=== PATIENT | female | born 1980 | race Caucasian/White ===

== ENCOUNTER 2017-06-05 10:44 | Inpatient (IN) | payer OTHER ==
[2017-06-05] VITALS (85 sets, daily range): BP systolic 98–135; BP diastolic 37–91; PULSE 76–138; RESP 14–18; TEMP 97.4–99; O2SAT 97–100
[~2017-06-05] VITALS: Ht 172.7 cm; Wt 98.0 kg
[~2017-06-05 10:44] MED LIST: ALBU8I INH; AMIT100 PO; TOPA100T8 PO
[2017-06-05] MEDS ORDERED: LACTATED RINGER'S 1000 ML INJ 1,000 ML IV PRN (12:02)
--- NOTE | 2017-06-05 12:07 | PD ---
HPI Chief Complaint 39 weeks and 3 days leaking fluid Travel History International Travel<30 Days: No Contact w/Intl Traveler<30Days: No Known Affected Area: No History of Present Illness HPI Patient is a 37 yo at 39 weeks and 3 days. Patient has EDC 06-09-2017. Care with Dr Moreno. No complications this . Pt had h/o recurrent losses, all first trimester. Pt states she noted leaking fluid vaginally at 08:30. Has continued to leak. Active movements. No vaginal bleeding. GBS negative in office. Weeks Gestation: 39 Para: 0 : 9 Miscarriage: 8 History Obstetric History Obstetric History recurrent first trimester losses Past Surgical History Narrative Surgical Right salpingectomy for hydrosalphinx 06/2016 Family History Family History: Negative Social History Alcohol Use: No Tobacco Use: No Substance Abuse: No Allergies-Medications (Allergen,Severity, Reaction): Coded Allergies: doxycycline (Unverified Allergy, Severe, Swelling, 01/04/17) tongue swells, painful skin. sumatriptan (Unverified Allergy, Severe, vomiting and lock jaw, 01/04/17) prochlorperazine (Unverified Allergy, Intermediate, Rash, 01/04/17) Home Meds Active Scripts Albuterol Sulfate 8 GM Inhaler (Ventolin Hfa) 8 Gm Aero, 2 PUFF INH Q6, #1 BOX 4 Refills * SHAKE WELL BEFORE USE * Prov:Clifton Arambula Jr., MD 07/24/14 Reported Medications Topiramate (Topamax) 100 Mg Tab, 100 MG PO TID, TAB 06/27/13 Amitriptyline Hcl (Elavil 100 Mg Tab) 100 Mg Tab, 100 MG PO HS, TAB 06/27/13 Review of Systems Except as stated in HPI: all other systems reviewed are Neg Physical Exam Narrative GENERAL: Well-nourished, well-developed patient. SKIN: Warm and dry. HEAD: Normocephalic and atraumatic. EYES: No scleral icterus. No injection or drainage. ENT: No nasal drainage noted. Mucous membranes pink. Airway patent. NECK: Supple, trachea midline. No JVD. CARDIOVASCULAR: Regular rate and rhythm without murmurs, gallops, or rubs. RESPIRATORY: Breath sounds equal bilaterally. No accessory muscle use. BREASTS: Bilateral exam showed no masses , no retractions, no nipple discharge. ABDOMEN/GI: Abdomen soft, non-tender, bowel sounds present, no rebound, no guarding Gravid to [39] weeks size Fundal Height: [39] GENITOURINARY: External Genitalia: intact and normal in appearance BUS glands: [wnl] Cervix: [soft] Dilatation: [1-2] Effacement: [80%] Station: [-2] Presentation: [vertex] Membranes: [ruptured] Amniosure positive Uterine Contractions: [irregular] FHT's: Category: [1] Baseline: [120s] Reactive: [-] Variability: [moderate] Decels: [none] EXTREMITIES: No cyanosis or edema. BACK: Nontender without obvious deformity. No CVA tenderness. NEUROLOGICAL: Awake and alert. Motor and sensory grossly within normal limits. Five out of 5 muscle strength in all muscle groups. Normal speech. Data Data Vital Signs Reviewed: Yes Orders Orders Ob (2e) Additional Admit Info (06/05/17 11:33) Group B Strep: Negative MDM Medical Record Reviewed: Yes Plan Pt is a 37 yo at 39 weeks and 3 days who presents with spontaneous rupture of membranes Reassuring and maternal status. GBS negative. D/w Dr Darby. Will admit to L&D Diagnosis Diagnosis: Primary Impression: with 39 completed weeks gestation Additional Impressions: Rupture of membranes with clear amniotic fluid Admitted to labor and delivery Abhi Licona MD Jun 05, 2017 12:07
[2017-06-05 12:15] LABS: AUTOMATED NEUTROPHIL # 9.3 TH/MM3 (1.8-7.7); BASOPHIL # 0.1 TH/MM3 (0-0.2); BASOPHIL % 0.8 % (0.0-2.0); EOSINOPHIL # 0.2 TH/MM3 (0-0.4); EOSINOPHIL % 1.3 % (0.0-4.0); HEMATOCRIT 35.6 % (35.0-46.0); HEMOGLOBIN 11.5 GM/DL (11.6-15.3); LYMPH % 14.9 % (9.0-44.0); LYMPHOCYTE # 1.9 TH/MM3 (1.0-4.8); MEAN CELL VOLUME 85.2 FL (80.0-100.0); MEAN CORPUSCULAR HEMOGLOBIN 27.6 PG (27.0-34.0); MEAN CORPUSCULAR HGB CONC 32.4 % (32.0-36.0); MEAN PLATELET VOLUME 8.6 FL (7.0-11.0); MONO % 8.9 % (0.0-8.0); MONOCYTE # 1.1 TH/MM3 (0-0.9); NEUT % 74.1 % (16.0-70.0); PLATELET COUNT 416 TH/MM3 (150-450); RED BLOOD COUNT 4.18 MIL/MM3 (4.00-5.30); RED CELL DISTRIBUTION WIDTH 15.1 % (11.6-17.2); WHITE BLOOD COUNT 12.6 TH/MM3 (4.0-11.0)
[2017-06-05] MEDS ORDERED: LIDOCAINE HCL 1% 50 ML VIAL INFIL PRN (12:15)
[2017-06-05] MEDS ORDERED: OXYTOCIN 30 UNITS-500ML PREMIX 500 ML IV ONE (12:15)
[2017-06-05] MEDS: LACTATED RINGER'S 1000 ML INJ 1,000 ML IV SCH ×2 (12:15→20:12)
[2017-06-05] MEDS ORDERED: LIDOCAINE HCL 1% 50 ML VIAL I-DERMAL PRN (12:15)
[2017-06-05] MEDS ORDERED: CITRIC ACID-SODIUM CITRATE LIQ 30 ML UDC PO SCH (12:15)
[2017-06-05] MEDS ORDERED: SODIUM CHLORID 0.9% 500 ML INJ 500 ML IV PRN (12:15)
[2017-06-05] MEDS ORDERED: MINERAL OIL 10 ML VIAL TOPICAL PRN (12:15)
--- NOTE | 2017-06-05 12:15 | HHI.HP ---
HPI Chief Complaint 39 weeks and 3 days Spontaneous rupture of membranes 08:30 Travel History International Travel<30 Days: No Contact w/Intl Traveler<30Days: No Known Affected Area: No History of Present Illness HPI Patient is a 37 yo at 39 weeks and 3 days. Patient has EDC 06-09-2017. Care with Dr Moreno. No complications this . Pt had h/o recurrent losses, all first trimester. Pt states she noted leaking fluid vaginally at 08:30. Has continued to leak. Active movements. No vaginal bleeding. GBS negative in office. Grossly rupture on exam Weeks Gestation: 39 Para: 0 : 9 Miscarriage: 8 History Past Medical History Narrative Medical Migraine headaches Obstetric History Obstetric History h/o recurrent first trimester losses Past Surgical History Narrative Surgical RIGHT salpingectomy 06/2016 for hydrosalpinx Family History Family History: Negative Social History Alcohol Use: No Tobacco Use: No Substance Abuse: No Allergies-Medications (Allergen,Severity, Reaction): Coded Allergies: doxycycline (Unverified Allergy, Severe, Swelling, 01/04/17) tongue swells, painful skin. sumatriptan (Unverified Allergy, Severe, vomiting and lock jaw, 01/04/17) prochlorperazine (Unverified Allergy, Intermediate, Rash, 01/04/17) Home Meds Active Scripts Albuterol Sulfate 8 GM Inhaler (Ventolin Hfa) 8 Gm Aero, 2 PUFF INH Q6, #1 BOX 4 Refills * SHAKE WELL BEFORE USE * Prov:Clifton Arambula Jr., MD 07/24/14 Reported Medications Topiramate (Topamax) 100 Mg Tab, 100 MG PO TID, TAB 06/27/13 Amitriptyline Hcl (Elavil 100 Mg Tab) 100 Mg Tab, 100 MG PO HS, TAB 06/27/13 Review of Systems Except as stated in HPI: all other systems reviewed are Neg Physical Exam Narrative GENERAL: Well-nourished, well-developed patient. SKIN: Warm and dry. HEAD: Normocephalic and atraumatic. EYES: No scleral icterus. No injection or drainage. ENT: No nasal drainage noted. Mucous membranes pink. Airway patent. NECK: Supple, trachea midline. No JVD. CARDIOVASCULAR: Regular rate and rhythm without murmurs, gallops, or rubs. RESPIRATORY: Breath sounds equal bilaterally. No accessory muscle use. BREASTS: Bilateral exam showed no masses , no retractions, no nipple discharge. ABDOMEN/GI: Abdomen soft, non-tender, bowel sounds present, no rebound, no guarding Gravid to [39] weeks size Fundal Height: [39] GENITOURINARY: External Genitalia: intact and normal in appearance BUS glands: [wnl] Cervix: [soft] Dilatation: [1-2] Effacement: [80%] Station: [-2] Presentation: [vertex] Membranes: [intact or ruptured] Uterine Contractions: [8-10 minutes] FHT's: Category: [1] Baseline: [120s] Reactive: [-] Variability: [moderate] Decels: [none] EXTREMITIES: No cyanosis or edema. BACK: Nontender without obvious deformity. No CVA tenderness. NEUROLOGICAL: Awake and alert. Motor and sensory grossly within normal limits. Five out of 5 muscle strength in all muscle groups. Normal speech. Caprini VTE Risk Assessment Caprini VTE Risk Assessment: No/Low Risk (score <= 1) Caprini Risk Assessment Model Point Value = 1 Point Value = 2 Point Value = 3 Point Value = 5 Age 41-60 Minor surgery BMI > 25 kg/m2 Swollen legs Varicose veins or History of unexplained or recurrent spontaneous Oral contraceptives or hormone replacement Sepsis (< 1 month) Serious lung disease, including pneumonia (< 1 month) Abnormal pulmonary function Acute myocardial infarction Congestive heart failure (< 1 month) History of inflammatory bowel disease Medical patient at bed rest Age 61-74 Arthroscopic surgery Major open surgery (> 45 min) Laparoscopic surgery (> 45 min) Malignancy Confined to bed (> 72 hours) Immobilizing plaster cast Central venous access Age >= 75 History of VTE Family history of VTE Factor V Leiden Prothrombin [id number] Lupus anticoagulant Anticardiolipin antibodies Elevated serum homocysteine Heparin-induced thrombocytopenia Other congenital or acquired thrombophilia Stroke (< 1 month) Elective arthroplasty Hip, pelvis, or leg fracture Acute spinal cord injury (< 1 month) Prophylaxis Regimen Total Risk Factor Score Risk Level Prophylaxis Regimen 0-1 Low Early ambulation 2 Moderate Order ONE of the following: *Sequential Compression Device (SCD) *Heparin 5000 units SQ BID 3-4 Higher Order ONE of the following medications: *Heparin 5000 units SQ TID *Enoxaparin/Lovenox 40 mg SQ daily (WT < 150 kg, CrCl > 30 mL/min) *Enoxaparin/Lovenox 30 mg SQ daily (WT < 150 kg, CrCl > 10-29 mL/min) *Enoxaparin/Lovenox 30 mg SQ BID (WT < 150 kg, CrCl > 30 mL/min) AND/OR *Sequential Compression Device (SCD) 5 or more Highest Order ONE of the following medications: *Heparin 5000 units SQ TID (Preferred with Epidurals) *Enoxaparin/Lovenox 40 mg SQ daily (WT < 150 kg, CrCl > 30 mL/min) *Enoxaparin/Lovenox 30 mg SQ daily (WT < 150 kg, CrCl > 10-29 mL/min) *Enoxaparin/Lovenox 30 mg SQ BID (WT < 150 kg, CrCl > 30 mL/min) AND *Sequential Compression Device (SCD) Data Data Vital Signs Reviewed: Yes Orders Orders Ob (2e) Additional Admit Info (06/05/17 11:33) Admit To Inpatient (06/05/17 ) Code Status (06/05/17 12:02) Vital Signs (Adult) .Per protocol (06/05/17 12:02) Activity Oob Ad Maggie (06/05/17 12:02) Heart (06/05/17 12:02) Amnioinfusion (06/05/17 12:02) Urinary Catheter Management .ONCE (06/05/17 12:02) Diet Liquid (06/05/17 Lunch) Lactated Ringer's 1000 Ml Inj (Lr 1000 M (06/05/17 12:02) Lactated Ringer's 1000 Ml Inj (Lr 1000 M (06/05/17 12:02) Sodium Chlorid 0.9% 500 Ml Inj (Ns 500 M (06/05/17 12:15) Sodium Chlor 0.9% 1000 Ml Inj (Ns 1000 M (06/05/17 12:22) Lidocaine 1% Inj (50 Ml) (Xylocaine 1% I (06/05/17 12:15) Citric Acid-Sodium Citrate Liq (Bicitra (06/05/17 12:15) Fentanyl Inj (Fentanyl Inj) (06/05/17 12:15) Fentanyl Inj (Fentanyl Inj) (06/05/17 12:15) Complete Blood Count With Diff (06/05/17 12:02) Hold Clot (06/05/17 12:02) Abo/Rh Blood Type (06/05/17 12:02) Urinalysis - C+S If Indicated (06/05/17 12:02) Drug Screen, Random Urine (06/05/17 12:02) Resp Oxygen Non Rebreathe Mask (06/05/17 ) ^ Epidural / Intrathecal Infus (06/05/17 12:02) Oxytocin 30 Units-500ml Premix (Pitocin (06/05/17 12:15) Lidocaine 1% Inj (50 Ml) (Xylocaine 1% I (06/05/17 12:15) Light Mineral Oil (Muri-Lube Oil) (06/05/17 12:15) Inpatient Certification (06/05/17 ) Specimen To Be Collected PRN (06/05/17 12:02) Specimen To Be Collected PRN (06/05/17 12:02) Group B Strep: Negative Assessment/Plan Assessment and Plan 37 yo at 39 weeks and 3 days. SROM at term , clear /maternal status reassuring. GBS negative Admit to L&D Abhi Licona MD Jun 05, 2017 12:15
[2017-06-05] MEDS ORDERED: SODIUM CHLOR 0.9% 1000 ML INJ 1,000 ML IV PRN (12:22)
[2017-06-05 12:54] LABS: AMORPHOUS SEDIMENT, URINE MOD; BACTERIA, URINE OCC /hpf; BILIRUBIN, URINE NEG (NEG); BLOOD, URINE MOD (NEG); GLUCOSE,URINE NEG (NEG); HYALINE CAST, URINE 3 /lpf (RARE); KETONE, URINE NEG (NEG); NITRITE,URINE NEG (NEG); RENAL EPITHELIAL CELLS 1 /hpf; SQUAMOUS EPITHELIAL CELL URINE 19 /hpf (0-5); URINE COLOR LIGHT-YELLOW (YELLW/STRAW); URINE LEUKOCYTE ESTERASE NEG (NEG)
[2017-06-05 12:58] LABS: BANDS 9 % (0-6); CORRECTED NUCLEATED RBC 2 /100 WBC (0-0); LYMPHOCYTES 14 % (9-44); METAMYELOCYTES 3 % (0-1); MONOCYTES 11 % (0-8); MYELOCYTES 1 % (0-0); NEUTROPHIL # MANUAL DIFF 8.8 TH/MM3 (1.8-7.7); NUCLEATED RED BLOOD CELL 2 (0-0); POLYS (SEG NEUTROPHILS) 57 % (16-70)
[2017-06-05] MEDS ORDERED: ONDANSETRON HCL 4 MG/2 ML VIAL ONE ×2 (14:50→17:09)
[2017-06-05] MEDS ORDERED: OXYTOCIN 30 UNITS-500ML PREMIX 500 ML IV SCH (16:30)
[2017-06-05] MEDS ORDERED: fentaNYL 2MCG-BUPIV 0.125% INJ 100 ML ONE (17:12)
[2017-06-05] MEDS ORDERED: ePHEDrine/NS 25 MG/5 ML SYRINGE IV PUSH PRN (18:30)
[2017-06-05] MEDS ORDERED: NO SYSTEM NARCOTICS PRN (18:30)
[2017-06-05] MEDS ORDERED: DO NOT ADMINISTER ANTICOAGULANTS PRN (18:30)
[2017-06-05] MEDS: fentaNYL 2MCG-BUPIV 0.125% 100 ML EPIDURAL SCH ×2 (20:13→22:46)
--- NOTE | 2017-06-05 22:15 | PD.LABORPN ---
Subjective Subjective doing well Objective Vital Signs Vital Signs Date Time Temp Pulse Resp B/P (MAP) Pulse Ox O2 Delivery O2 Flow Rate FiO2 06/05/17 21:35 110 06/05/17 21:31 94 107/77 (87) 06/05/17 21:30 102 06/05/17 21:25 95 06/05/17 21:20 103 06/05/17 21:15 97 122/76 (91) 06/05/17 21:15 88 06/05/17 21:10 95 100 06/05/17 21:05 93 100 06/05/17 21:00 100 06/05/17 21:00 88 06/05/17 21:00 89 113/76 (88) 06/05/17 20:55 92 100 06/05/17 20:50 92 100 06/05/17 20:45 98 104/82 (89) 100 06/05/17 20:45 138 06/05/17 20:40 85 100 06/05/17 20:35 94 98 06/05/17 20:30 89 103/57 (72) 100 06/05/17 20:30 84 06/05/17 20:25 82 100 06/05/17 20:20 88 100 06/05/17 20:15 86 98/54 (69) 100 06/05/17 20:15 76 06/05/17 20:10 100 06/05/17 20:10 82 06/05/17 20:05 100 06/05/17 20:05 87 06/05/17 20:00 89 06/05/17 20:00 86 104/71 (82) 06/05/17 20:00 100 06/05/17 19:55 85 06/05/17 19:55 100 06/05/17 19:50 96 06/05/17 19:50 100 06/05/17 19:45 100 127/78 (94) 06/05/17 19:45 79 06/05/17 19:45 99 06/05/17 19:40 97 100 06/05/17 19:35 92 100 06/05/17 19:30 89 118/81 (93) 100 06/05/17 19:30 85 06/05/17 19:25 88 06/05/17 19:25 100 06/05/17 19:20 100 06/05/17 19:20 86 06/05/17 19:15 85 124/81 (95) 06/05/17 19:15 88 06/05/17 19:15 100 06/05/17 19:10 89 06/05/17 19:10 100 06/05/17 19:09 97.9 14 06/05/17 19:05 90 06/05/17 19:05 100 06/05/17 19:00 76 06/05/17 19:00 100 06/05/17 19:00 90 125/76 (92) 06/05/17 18:55 100 06/05/17 18:55 87 06/05/17 18:45 81 119/82 (94) 06/05/17 18:45 99 06/05/17 18:45 102 06/05/17 18:44 18 06/05/17 18:35 84 06/05/17 18:35 100 06/05/17 18:30 89 116/74 (88) 06/05/17 18:16 85 116/71 (86) 06/05/17 17:55 91 06/05/17 17:55 96 131/73 (92) 06/05/17 17:50 85 135/78 (97) 06/05/17 17:50 86 06/05/17 17:48 97.9 18 06/05/17 17:45 18 06/05/17 17:45 88 121/89 (100) 06/05/17 17:45 88 06/05/17 17:40 101 06/05/17 17:40 92 127/81 (96) 06/05/17 17:35 101 06/05/17 17:35 100 126/91 (103) 06/05/17 17:31 101 129/83 (98) 06/05/17 17:30 97 06/05/17 17:25 87 127/83 (98) 06/05/17 17:25 18 06/05/17 17:25 88 06/05/17 16:45 97.6 06/05/17 16:45 18 06/05/17 16:33 91 120/75 (90) 06/05/17 16:21 14 06/05/17 15:06 81 122/82 (95) 06/05/17 15:00 98.0 18 Objective Pelvic Exam: Cervix: [-] Dilatation: 6-7 Effacement: [-] Station: [-] Presentation: vtx Membranes: SROM Uterine Contractions: q2-3 FHT's: Category: 1 Baseline: [-] Reactive: [-] Variability: [-] Decels: [-] Weeks Gestation: 39 Assessment/Plan Problem List: (1) with 39 completed weeks gestation ICD Codes: Z3A.39 - 39 weeks gestation of Status: Acute (2) Rupture of membranes with clear amniotic fluid ICD Codes: O42.019 - premature rupture of membranes, onset of labor within 24 hours of rupture, unspecified trimester Status: Acute Gregg Massey MD Jun 05, 2017 22:15
[2017-06-05] MEDS ORDERED: BUPIVACAINE HCL PF 0.25% 10 ML VIAL ONE (23:59)
[2017-06-06] VITALS (53 sets, daily range): BP systolic 91–129; BP diastolic 52–72; PULSE 65–128; RESP 14–20; TEMP 97.6–100; O2SAT 97–100
[2017-06-06] MEDS ORDERED: LIDOCAINE 2%/EPINEPHrine PF 1:200,000 20ML SDV ONE
[2017-06-06] MEDS ORDERED: ACETAMINOPHEN 325 MG TAB PO PRN (00:15)
[2017-06-06] MEDS: LACTATED RINGER'S 1000 ML INJ 1,000 ML IV SCH ×2 (04:47→05:50)
[2017-06-06] MEDS: fentaNYL 2MCG-BUPIV 0.125% 100 ML EPIDURAL SCH (04:47)
--- NOTE | 2017-06-06 05:10 | PD.LABORPN ---
Subjective Subjective Pushing for 90 minutes, doing well with contractions Objective Vital Signs Vital Signs Date Time Temp Pulse Resp B/P (MAP) Pulse Ox O2 Delivery O2 Flow Rate FiO2 06/06/17 04:42 120 06/06/17 03:30 99.0 06/06/17 03:09 108 120/70 (87) 06/06/17 02:25 114 98 06/06/17 02:20 109 99 06/06/17 02:15 109 99 06/06/17 02:10 99 06/06/17 02:10 97 06/06/17 02:07 104 117/63 (81) 06/06/17 02:05 100 06/06/17 02:05 113 06/06/17 02:00 99.6 14 06/06/17 02:00 100 06/06/17 02:00 104 06/06/17 01:55 109 100 06/06/17 01:50 99 100 06/06/17 01:45 99 100 06/06/17 01:40 107 100 06/06/17 01:35 116 100 06/06/17 01:30 99 100 06/06/17 01:25 93 100 06/06/17 01:20 109 100 06/06/17 01:15 101 100 06/06/17 01:10 102 98 06/06/17 01:05 91 99 06/06/17 01:00 90 100 06/06/17 00:55 93 100 06/06/17 00:50 98 100 06/06/17 00:47 105 118/71 (87) 06/06/17 00:45 99 100 06/06/17 00:40 108 100 06/06/17 00:35 100 06/06/17 00:30 110 100 06/06/17 00:25 100 06/06/17 00:20 100 06/06/17 00:15 114 100 06/06/17 00:10 100 06/06/17 00:10 128 06/06/17 00:07 113 129/69 (89) 06/06/17 00:05 105 100 06/06/17 00:00 113 100 06/06/17 00:00 100.0 16 06/05/17 23:55 110 100 06/05/17 23:49 112 111/75 (87) 06/05/17 23:45 106 100 06/05/17 23:40 101 100 06/05/17 23:35 102 100 06/05/17 23:30 102 100 06/05/17 23:25 100 100 06/05/17 23:20 96 100 06/05/17 23:15 102 100 06/05/17 23:10 91 100 06/05/17 23:05 106 100 06/05/17 23:00 109 100 06/05/17 22:55 110 100 06/05/17 22:50 103 100 06/05/17 22:45 95 97 06/05/17 22:39 93 107/37 (60) 06/05/17 22:35 90 100 06/05/17 22:30 96 100 06/05/17 22:25 98 100 06/05/17 22:20 97 100 06/05/17 22:15 100 100 06/05/17 22:10 103 99 06/05/17 22:05 109 98 06/05/17 22:00 99.0 06/05/17 22:00 104 100 06/05/17 21:55 93 100 06/05/17 21:50 106 100 06/05/17 21:45 101 99 06/05/17 21:40 104 100 06/05/17 21:35 100 06/05/17 21:35 110 06/05/17 21:31 94 107/77 (87) 06/05/17 21:30 102 06/05/17 21:30 100 06/05/17 21:25 95 06/05/17 21:25 98 06/05/17 21:20 103 06/05/17 21:20 100 06/05/17 21:15 97 122/76 (91) 06/05/17 21:15 100 06/05/17 21:15 88 06/05/17 21:10 95 100 06/05/17 21:05 93 100 Objective Pelvic Exam: Cervix: [-] Dilatation: 10 Effacement: [-] Station: [-] Presentation: OP vertex Membranes: SROM Uterine Contractions: [-] FHT's: Category: 1 Baseline: [-] Reactive: [-] Variability: [-] Decels: [-] Weeks Gestation: 39 Assessment/Plan Problem List: (1) with 39 completed weeks gestation ICD Codes: Z3A.39 - 39 weeks gestation of Status: Acute (2) Rupture of membranes with clear amniotic fluid ICD Codes: O42.019 - premature rupture of membranes, onset of labor within 24 hours of rupture, unspecified trimester Status: Acute Plan: pushing for 1:50 Gregg Massey MD Jun 06, 2017 05:10
[2017-06-06] MEDS ORDERED: LACTATED RINGER'S 1000 ML INJ 1,000 ML IV ONE ×2 (05:20→12:00)
--- NOTE | 2017-06-06 05:22 | PD.LABORPN ---
Subjective Subjective for CS Objective Vital Signs Vital Signs Date Time Temp Pulse Resp B/P (MAP) Pulse Ox O2 Delivery O2 Flow Rate FiO2 06/06/17 04:42 120 06/06/17 03:30 99.0 06/06/17 03:09 108 120/70 (87) 06/06/17 02:25 114 98 06/06/17 02:20 109 99 06/06/17 02:15 109 99 06/06/17 02:10 99 06/06/17 02:10 97 06/06/17 02:07 104 117/63 (81) 06/06/17 02:05 100 06/06/17 02:05 113 06/06/17 02:00 99.6 14 06/06/17 02:00 100 06/06/17 02:00 104 06/06/17 01:55 109 100 06/06/17 01:50 99 100 06/06/17 01:45 99 100 06/06/17 01:40 107 100 06/06/17 01:35 116 100 06/06/17 01:30 99 100 06/06/17 01:25 93 100 06/06/17 01:20 109 100 06/06/17 01:15 101 100 06/06/17 01:10 102 98 06/06/17 01:05 91 99 06/06/17 01:00 90 100 06/06/17 00:55 93 100 06/06/17 00:50 98 100 06/06/17 00:47 105 118/71 (87) 06/06/17 00:45 99 100 06/06/17 00:40 108 100 06/06/17 00:35 100 06/06/17 00:30 110 100 06/06/17 00:25 100 06/06/17 00:20 100 06/06/17 00:15 114 100 06/06/17 00:10 100 06/06/17 00:10 128 06/06/17 00:07 113 129/69 (89) 06/06/17 00:05 105 100 06/06/17 00:00 113 100 06/06/17 00:00 100.0 16 06/05/17 23:55 110 100 06/05/17 23:49 112 111/75 (87) 06/05/17 23:45 106 100 06/05/17 23:40 101 100 06/05/17 23:35 102 100 06/05/17 23:30 102 100 06/05/17 23:25 100 100 06/05/17 23:20 96 100 06/05/17 23:15 102 100 06/05/17 23:10 91 100 06/05/17 23:05 106 100 06/05/17 23:00 109 100 06/05/17 22:55 110 100 06/05/17 22:50 103 100 06/05/17 22:45 95 97 06/05/17 22:39 93 107/37 (60) 06/05/17 22:35 90 100 06/05/17 22:30 96 100 06/05/17 22:25 98 100 06/05/17 22:20 97 100 06/05/17 22:15 100 100 06/05/17 22:10 103 99 06/05/17 22:05 109 98 06/05/17 22:00 99.0 06/05/17 22:00 104 100 06/05/17 21:55 93 100 06/05/17 21:50 106 100 06/05/17 21:45 101 99 06/05/17 21:40 104 100 06/05/17 21:35 100 06/05/17 21:35 110 06/05/17 21:31 94 107/77 (87) 06/05/17 21:30 102 06/05/17 21:30 100 06/05/17 21:25 95 06/05/17 21:25 98 Objective Pelvic Exam: Cervix: 10 Dilatation: [-] Effacement: [-] Station: [-] Presentation: [-] Membranes: [intact or ruptured] Uterine Contractions: [-] FHT's: Category: [-] Baseline: [-] Reactive: [-] Variability: [-] Decels: [-] Weeks Gestation: 39 Assessment/Plan Problem List: (1) with 39 completed weeks gestation ICD Codes: Z3A.39 - 39 weeks gestation of Status: Acute (2) Rupture of membranes with clear amniotic fluid ICD Codes: O42.019 - premature rupture of membranes, onset of labor within 24 hours of rupture, unspecified trimester Status: Acute Plan: pushing for 1:50 (3) Arrest of descent, delivered, current hospitalization ICD Codes: O62.1 - Secondary uterine inertia Gregg Massey MD Jun 06, 2017 05:22
[2017-06-06] MEDS ORDERED: MORPHINE SULFATE PF 5 MG/10 ML VIAL ONE (05:31)
[2017-06-06] MEDS ORDERED: ACETAMINOPHEN 1000 MG/100 ML 100 ML IV ONE (05:31)
[2017-06-06] MEDS ORDERED: MIDAZOLAM HCL 2 MG/2 ML VIAL ONE (05:37)
--- NOTE | 2017-06-06 06:24 | PD.OB.DELI ---
Procedure Note Section Procedure Pre Op Diagnosis: (1) Arrest of descent, delivered, current hospitalization Post Op Diagnosis: (1) Arrest of descent, delivered, current hospitalization Performed by Gregg Massey Procedure: Primary Low Transverse Sec Indication for delivery: malposition (direct op), Other (arrest of descent after 2 hours pushing) Informed consent obtained: For anesthesia, For procedure Confirmed correct: Procedure, Time-out taken Anesthesia: Epidural (converted to general) Medication prior to procedure: As documented in eMAR, Antibiotics, IV Monitoring during procedure: Blood pressure monitoring, patient monitor Urinary catheter: To dependent drainage, Other (bloody entering surgery) Sterile preparation: Duraprep Position: Supine with wedge to left side Operative Features Skin Incision: Pfannenstiel Uterine Incision: Low transverse w/knife / blunt ext Membranes Ruptured: Previously Presentation: Occiput posterior Delivery date: Jun 06, 2017 Delivery time: 05:53 Delivery of : Uneventful : Male, Single One Minute : 6 Five Minute : 7 Ten Minute : 9 Weight: 4460 gm Status of : Viable Placenta delivered: Intact Medications: Antibiotics Estimated blood loss: 500 Procedure tolerated: Well Maternal Condition: Stable Condition: Stable Gregg Massey MD Jun 06, 2017 06:24
[2017-06-06] MEDS ORDERED: KETOROLAC TROMETHAMINE 60 MG/2 ML (IM) VIAL IM PRN (06:30)
[2017-06-06] MEDS ORDERED: oxyCODONE/ACETAMINOPHEN 5 MG/325 MG TAB PO PRN (06:30)
[2017-06-06] MEDS ORDERED: SODIUM CHLORIDE 0.9% FLUSH 10 ML FLUSH IV FLUSH PRN (06:30)
[2017-06-06] MEDS ORDERED: ceFAZolin 2 GM PREMIX 50 ML IV SCH (06:30)
[2017-06-06] MEDS ORDERED: SIMETHICONE 80 MG CHEWABLE TAB PO PRN (06:30)
[2017-06-06] MEDS ORDERED: OXYTOCIN 30 UNITS-500ML PREMIX 500 ML IV ONE (06:30)
--- NOTE | 2017-06-06 06:43 | MP ---
cc: EVENS MASSEY DATE OF PROCEDURE 06/06/2017 PROCEDURE Primary low transverse section for arrest of dilatation after 2 hours of pushing. PREOPERATIVE DIAGNOSIS Arrest of dilatation. POSTOPERATIVE DIAGNOSIS Arrest of dilatation. SURGEON Dr. Evens Massey ESTIMATED BLOOD LOSS 500 cc. COMPLICATIONS None. FINDINGS Live male infant, Apgars of 6, 7 and 9. A 4460-gram male born by section. COMPLICATIONS None. SURGEON Dr. Evens Massey ANESTHESIA Dr. Moreno, epidural which was converted to general anesthesia. PROCEDURE IN DETAIL After informed consent the patient was taken to the operating room where she was placed under epidural anesthesia. She was placed in supine position in left lateral tilt. Abdomen, perineum and vagina were prepped and draped in normal sterile fashion after adequate anesthesia was assured. A time-out was taken attempting to test the patient. The patient had left-sided pain. The right side was completely numb. The left side was inadequate for section. Decision was made general anesthesia. Abebe Batista and Dr. Moreno put the patient under general anesthesia. Once the patient was placed under general anesthesia and the patient had already been prepped and draped and the Fournier was draining well, a Pfannenstiel skin incision was carried sharply through the skin to the fascia. The fascia was nicked in the midline. The incision was extended laterally using Crum scissors. The rectus muscle was in the midline. The peritoneum was entered bluntly with a finger, the incision then extended laterally using Crum scissors. The peritoneum was entered. The uterus was noted to be midline. A bladder flap was created by dissecting the bladder off the lower uterine segment. A low-transverse uterine incision was then made, carried sharply into the uterine cavity. Clear fluid was noted. The incision was extended laterally using blunt traction. A hand was placed in the uterus. The 's head was guided through the incision using fundal pressure. The 's head was delivered easily. The infant was delivered, was attempting to cry and cried three or four times on the mother's thighs with some tone and movement. At this point the cord was clamped and cut and the infant was handed to pediatrics in attendance. Cord blood was collected. We had a 45-second delay in cord clamping when was clamped, cut and tied. Cord blood was collected. Placenta was delivered manually. The uterus was exteriorized, wiped free from all remaining products of conception. The uterine incision was then closed with a running locked stitch of chromic suture. Good hemostasis was achieved. The uterus was placed back in the abdomen, noted to be hemostatic. The perineum was closed with Vicryl suture. The fascia was closed with Vicryl suture and the skin was closed with subcuticular stitches. Each layer was noted to be hemostatic prior to closure and the patient tolerated the procedure well. MD MELINDA Roland/AL /6:15 AM /6:24 AM
[2017-06-06] MEDS ORDERED: CITRIC ACID-SODIUM CITRATE LIQ 30 ML UDC PO SCH (07:00)
[2017-06-06] MEDS ORDERED: EPIDURAL-NALOXONE HCL 0.4 MG/ML AMP IV PUSH PRN (08:45)
[2017-06-06] MEDS ORDERED: EPIDURAL-DIPHENHYDRAMINE HCL 50 MG/ML VIAL IV PUSH PRN (08:45)
[2017-06-06] MEDS ORDERED: EPIDURAL-DO NOT ADMINISTER ANTICOAGULANTS PRN (08:45)
[2017-06-06] MEDS ORDERED: EPIDURAL-DIPHENHYDRAMINE HCL 50 MG CAP PO PRN (08:45)
[2017-06-06] MEDS ORDERED: EPIDURAL-NO SYSTEMIC NARCOTICS PRN (08:45)
[2017-06-06] MEDS ORDERED: LACTATED RINGER'S 1000 ML INJ 1,000 ML IV SCH (11:24)
[2017-06-06] MEDS ORDERED: OXYTOCIN 10 UNIT/ML AMP IV ONE (12:00)
[2017-06-06] MEDS ORDERED: ceFAZolin INJ 1,000 MG VIAL IV ONE (12:00)
[2017-06-06] MEDS ORDERED: DEXAMETHASONE SOD PHOS 4 MG/ML VIAL IV ONE (12:00)
[2017-06-06] MEDS ORDERED: PROPOFOL 200 MG/20 ML AMP IV ONE (12:00)
[2017-06-06] MEDS ORDERED: SUCCINYLCHOLINE CHLORIDE 100 MG/5 ML SYRINGE IV PUSH ONE (12:00)
[2017-06-06] MEDS ORDERED: ONDANSETRON HCL 4 MG/2 ML VIAL IV ONE (12:00)
[2017-06-06] MEDS ORDERED: PHENYLEPH/NS 1000 MCG/10 ML SYR IV ONE (12:00)
[2017-06-06] MEDS: oxyCODONE/ACETAMINOPHEN 5 MG/325 MG TAB PO PRN ×2 (14:01→21:26)
[2017-06-06] MEDS ORDERED: OXYTOCIN 30 UNITS-500ML PREMIX 500 ML IV PRN (16:30)
[2017-06-06] MEDS: IBUPROFEN 600 MG TAB PO PRN (21:25)
[2017-06-07] VITALS (7 sets, daily range): BP systolic 90–112; BP diastolic 55–71; PULSE 61–83; RESP 16–18; TEMP 97.8–97.9; O2SAT 97
[2017-06-07 05:56] LABS: AUTOMATED NEUTROPHIL # 25.6 TH/MM3 (1.8-7.7); BASOPHIL # 0.1 TH/MM3 (0-0.2); BASOPHIL % 0.2 % (0.0-2.0); EOSINOPHIL # 0.2 TH/MM3 (0-0.4); EOSINOPHIL % 0.5 % (0.0-4.0); HEMATOCRIT 24.4 % (35.0-46.0); HEMOGLOBIN 7.9 GM/DL (11.6-15.3); LYMPH % 10.4 % (9.0-44.0); LYMPHOCYTE # 3.2 TH/MM3 (1.0-4.8); MEAN CELL VOLUME 85.2 FL (80.0-100.0); MEAN CORPUSCULAR HEMOGLOBIN 27.5 PG (27.0-34.0); MEAN CORPUSCULAR HGB CONC 32.3 % (32.0-36.0); MEAN PLATELET VOLUME 8.4 FL (7.0-11.0); MONO % 6.1 % (0.0-8.0); MONOCYTE # 1.9 TH/MM3 (0-0.9); NEUT % 82.8 % (16.0-70.0); PLATELET COUNT 293 TH/MM3 (150-450); RED BLOOD COUNT 2.86 MIL/MM3 (4.00-5.30); RED CELL DISTRIBUTION WIDTH 15.4 % (11.6-17.2); WHITE BLOOD COUNT 30.9 TH/MM3 (4.0-11.0)
[2017-06-07 08:09] LABS: BANDS 27 % (0-6); LYMPHOCYTES 8 % (9-44); MONOCYTES 1 % (0-8); NEUTROPHIL # MANUAL DIFF 28.1 TH/MM3 (1.8-7.7); POLYS (SEG NEUTROPHILS) 64 % (16-70)
[2017-06-07] MEDS: IBUPROFEN 600 MG TAB PO PRN ×3 (08:19→21:29)
[2017-06-07] MEDS: oxyCODONE/ACETAMINOPHEN 5 MG/325 MG TAB PO PRN ×3 (08:19→21:29)
--- NOTE | 2017-06-07 12:42 | HHI.OB ---
Subjective Post Operative Day: 1 Remarks Pain controlled, mod lochia, jasmin po, +void Objective Vitals/I&O Vital Signs Date Time Temp Pulse Resp B/P (MAP) Pulse Ox O2 Delivery O2 Flow Rate FiO2 06/07/17 08:35 97.8 75 16 104/71 (82) 06/07/17 05:11 18 06/07/17 04:00 97.9 83 18 90/55 (67) 97 06/07/17 02:30 18 06/07/17 01:30 16 06/07/17 00:00 97.8 77 18 94/59 (71) 97 06/06/17 22:46 18 06/06/17 21:15 20 06/06/17 20:00 98.0 83 18 91/59 (70) 97 06/06/17 13:50 76 20 108/66 (80) Result Diagram: 06/07/17 0529 Objective Remarks GENERAL: Well-nourished, well-developed patient. CARDIOVASCULAR: Regular rate and rhythm without murmurs, gallops, or rubs. RESPIRATORY: Breath sounds equal bilaterally. No accessory muscle use. ABDOMEN/GI: Abdomen soft, non-tender, bowel sounds present. Incision: Clean, dry and intact. Fundus: Firm, non-tender at umbilicus. GENITOURINARY: Light to moderate bleeding. EXTREMITIES: No cyanosis or edema, non-tender, without signs of DVT. Medications and IVs Current Medications Medications (Trade) Dose Ordered Sig/Alex Route Start Time Stop Time Status Last Admin Lactated Ringer's 1,000 ml @ 150 mls/hr [id number] IV 06/06/17 05:50 Cefazolin Sodium/ Dextrose 50 ml @ 100 mls/hr ORIENTAL RUG REPAIRER IV 06/06/17 06:30 06/10/17 06:29 (Bicitra Liq) 30 ml ORIENTAL RUG REPAIRER PO 06/06/17 07:00 06/10/17 06:59 Oxytocin 500 ml @ 100 mls/hr UNSCH X1 PRN IV 06/06/17 16:30 06/07/17 16:29 (NS Flush) 2 ml BID IV FLUSH 06/06/17 09:00 (NS Flush) 2 ml UNSCH PRN IV FLUSH 06/06/17 06:30 (Mylicon Chew) 80 mg QID PRN PO 06/06/17 06:30 (Motrin) 600 mg Q6H PRN PO 06/06/17 06:30 06/07/17 08:19 (Percocet 5-325 Mg) 1 tab Q4H PRN PO 06/06/17 06:30 (Percocet 5-325 Mg) 2 tab Q4H PRN PO 06/06/17 06:30 06/07/17 08:19 (M-M-R Ii Inj) 0.5 ml ONCE ONCE SQ 06/07/17 16:00 06/07/17 16:01 (Boostrix Inj) 0.5 ml ONCE ONCE IM 06/07/17 16:00 06/07/17 16:01 06/06/17 21:31 Assessment/Plan Problem List: (1) Arrest of descent, delivered, current hospitalization 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
[2017-06-07] MEDS ORDERED: DIPHTH/TETANUS/ACEL PERTUSSIS (BOOSTER) 0.5 ML VIAL/PFS IM ONE (16:00)
[2017-06-07] MEDS ORDERED: MEASLES, MUMPS, RUBELLA VACCINE 0.5 ML VIAL SQ ONE (16:00)
[2017-06-07] MEDS: LACTATED RINGER'S 1000 ML INJ 1,000 ML IV SCH ×2 (19:14→19:15)
[2017-06-07] MEDS: SODIUM CHLORIDE 0.9% FLUSH 10 ML FLUSH IV FLUSH SCH (19:14)
[2017-06-08] MEDS: oxyCODONE/ACETAMINOPHEN 5 MG/325 MG TAB PO PRN ×2 (02:02→14:36)
[2017-06-08] MEDS: IBUPROFEN 600 MG TAB PO PRN ×3 (02:03→14:35)
[2017-06-08 08:05] VITALS: BP 111/71; PULSE 74; RESP 16; TEMP 97.8
[2017-06-08] MEDS: SODIUM CHLORIDE 0.9% FLUSH 10 ML FLUSH IV FLUSH SCH (09:00)
[2017-06-08] MEDS ORDERED: OXYC1TAB63 PO (15:36)
[2017-06-08] MEDS ORDERED: IBUP-232 PO (15:36)
--- NOTE | 2017-06-08 15:37 | HHI.DS ---
Admission Date Jun 05, 2017 at 11:38 Discharge Date: Jun 08, 2017 Admitting Diagnosis IUP@Term, labor, arrest of descent Diagnosis: Delivery Date: Jun 06, 2017 : Primary Reason: arrest of descent : Male, Single Brief History Patient is a 37 yo at 39 weeks and 3 days. Patient has EDC 06-09-2017. Care with Dr Moreno. No complications this . Pt had h/o recurrent losses, all first trimester. Pt states she noted leaking fluid vaginally at 08:30. Has continued to leak. Active movements. No vaginal bleeding. GBS negative in office. Grossly rupture on exam Hospital Course pt was admitted in labor. she progressed to complete and pushed for 2 hours. c -section was performed. baby was OP. by POD 1 pt was voiding with good pain control. by POD 2 pt was voiding, passing gas with good pain control. circ was performed. pt was d/c'd on POD 2 in stable condition. Pt Condition on Discharge: Stable Discharge Disposition: Discharge Home Discharge Instructions Diet Instructions: As Tolerated, No Restrictions Additional Diet Instructions: Drink at least 8 - 16 oz bottles of water a day Activities You Can Perform: Shower Only-No Bath Activities to Avoid: Prolonged Standing, Strenuous Activity, Sexual Activity Additional Activity Instruc.: No driving until off pain medications Do not lift anything heavier than your baby in an carrier Maria Del Rosario Moreno MD Jun 08, 2017 15:37
== END 2017-06-08 16:24 | disposition home or self-care (01) | DRG 766 ==
LOC: HOBED 10:44 → H2EA 11:38 → H1EA 06-06 08:08
PROVIDERS: ADMIT Obstetrics & Gynecology; ATTEND Obstetrics & Gynecology
PROC: 10D00Z1 Extraction of Products of Conception, Low, Open Approach (ICD-10-PCS; principal; 2017-06-06)
PROC: 00HU33Z Insertion of Infusion Device into Spinal Canal, Percutaneous Approach (ICD-10-PCS; 2017-06-06)
PROC: 3E0R3BZ Introduction of Anesthetic Agent into Spinal Canal, Percutaneous Approach (ICD-10-PCS; 2017-06-06)
DX: O62.1 Secondary uterine inertia (principal); G43.909 Migraine, unspecified, not intractable, without status migrainosus; Z37.0 Single live birth; Z3A.39 39 weeks gestation of pregnancy
CPT/HCPCS: 80307; 81001; 84112; 85007; 85027; 87086; 87535; 90715; J0131; J0330; J0690; J1100; J1885; J2250; J2274; J2370; J2405; J2590; J3010; J7120